=== PATIENT | male | born 2000 | race Hispanic/Latino ===

== ENCOUNTER 2024-05-04 10:20 | Emergency (ER) | payer SELFPAY ==
--- OUTSIDE RECORDS SUMMARY | 2024-05-04 10:24 | XMS REPORT | Continuity of Care Document ---
Author Name Unknown Address [address] [place] [address] [facility] thconnect Address 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 PCP, PATIENT DOES NOT HAVE A Primary Care Physic Jesse Sandoval Attending Clinician UnavailIsaac Herrera Attending Clinician Unavailable Wendy Fowler MD Attending Clinician Maxim Katz ENP Attending Clinician Doctor Unassigned, [place] Attending Clinician U navailable NIKO DEL TORO Attending Clinician Unavailable NIKO DEL TORO Attending Clinician Unavailable MAXIM KATZ Attending Clinician Unavailable XIAO DOBSON Attending Clinician Unavailable Xiao Dobson MD Attending Clinician FREDA VALERIO Attending Clinician UnavailFREDA Montemayor Attending Clinician Unavailpeace e Physician, No Primary or Family Admitting Clinic candida Unavailable NIKO DEL TORO Admitting Clinician Unavailable MAXIM KATZ Admitting Clinician Unavailable WENDY FOWLER Admitting Clinician Unavailable XIAO DOBSON Admitting Clinician Unavailable FREDA VALERIO Admitting Clinician Unavailabl e Payers Payer Name Policy Type Policy Number Effective Date Expirati on Date Source Problems Condition Name Condition Details Condition Category Status Onset Date Resolution Date Last Treatment Date Treating Clinician Comments Source No known active problems No known active problems Disease [facility] Allergies, Adverse Reactions, Alerts Allergy Name Allergy Type Status Severity Reaction(s) Onset Date Inactive Date Treating Clinician Comments Source No Known Allergie s DA Active U 4-03 00:00: 00 [facility] No Known Allergie s DA Active U 2022-07 0-08 00:00: 00 [facility] No Known Allergie s DA Active U 918 00:00: 00 [facility] No Known Allergie s DA Active U 9-18 00:00: 00 [facility] NO KNOWN ALLERGIE S Drug Class Active [facility] Social History Social Habit Start Date Stop Date Quantity Comments Source Gender identity [facility] Sexual orientation U [facility] Exposure to SARS-CoV-2 (event) 2022-12-10 00:00:00 2022-12-20 17:38:[address] [facility] Sex Assigned At 2000 00:00:00 2000 00:00:00 [facility] Smoking Status Start Date Stop Date Source Tobacco smoking consumption unknown [facility] Medications Ordered Medication Name Filled Medication Name Start Date Stop Date Current Medication? Ordering Clinician Indication Dosage Frequency Signature (SIG) Comments Components Source levETIRAcet am (KEPPRA) tablet 1,000 mg 02-16 01:30: 00 02-16 00:45 :00 No 1000mg 1,000 mg, Oral, ONCE, 1 dose, On 02/15/23 at 2030, Routine [facility] NaCl 0.9% (NS) bolus infusion 1,000 mL 02-15 23:45: 00 02-16 00:43 :00 No 1000mL at 999 mL/hr, 1,000 mL, IV Infusion, ONCE, 1 dose, On 02/15/23 at 1845, [facility] ondansetron (ZOFRAN (PF)) injection 4 mg 02-15 23:45: 00 02-15 23:13 :00 No 4mg 4 mg, Slow IV Push, ONCE, 1 dose, On 02/15/23 at 1845, [facility] famotidine (PEPCID (PF)) injection 20 mg 02-15 23:00: 00 02-15 23:13 :00 No 20mg 20 mg, Slow IV Push, ONCE, 1 dose, On 02/15/23 at 1800, [facility] iopamidol (ISOVUE 370-500 mL) injection 80 mL 01-31 15:15: 00 01-31 15:15 :00 No [id number] 80mL 80 mL, Intravenou s, ONCE, 1 dose, On 01/31/23 at 1015, Routine [facility] ondansetron (ZOFRAN (PF)) injection 4 mg 01-31 14:30: 00 01-31 14:07 :00 No 4mg 4 mg, Slow IV Push, ONCE, 1 dose, On 01/31/23 at 0930, [facility] pantoprazol e (PROTONIX) injection 40 mg 01-31 14:30: 00 01-31 14:09 :00 No 40mg 40 mg, Slow IV Push, ONCE, 1 dose, On 01/31/23 at 0930 [facility] NaCl 0.9% (NS) bolus infusion 1,000 mL 01-31 14:30: 00 01-31 15:14 :00 No 1000mL at 999 mL/hr, 1,000 mL, IV Infusion, ONCE, 1 dose, On Thu01/31/23 at 0930, BRITTANY [facility] sucralfate 1 gram tablet 01-31 00:00: 00 Yes [id number] 1g Take 1 tablet by mouth before meals and at bedtime. [facility] ZITHROMAX Z-SALLY 250 mg dose pack 01-31 00:00: 00 Yes [id number] Take 2 tablets on day 1, then 1 tablet daily on days 2-5. [facility] albuterol 90 mcg/actuati on inhaler 01-31 00:00: 00 Yes [id number] 2{puff} Inhale 2 Puffs every 4 (four) hours as needed for Wheezing or Shortness of Breath. [facility] famotidine (PEPCID) 20 mg tablet 01-31 00:00: 00 03-03 04:59 :00 No [id number] 20mg Take 1 tablet by mouth in the morning and 1 tablet in the evening. Do all this for 30 days. [facility] gadoteridol (PROHANCE-1 5 mL) injection 14.24 mL 01-20 22:30: 00 01-20 22:30 :00 No [id number] .2mL/kg 14.24 mL (0.2 mL/kg ?71.2 kg), Intravenou s, ONCE, 1 dose, On Thu01/20/23 at 1730, Routine [facility] NaCl 0.9% (NS) bolus infusion 1,000 mL 01-20 21:45: 00 01-21 00:04 :00 No 1000mL at 999 mL/hr, 1,000 mL, IV Infusion, ONCE, 1 dose, On Thu01/20/23 at 1645, BRITTANY [facility] levETIRAcet am (KEPPRA) in NACL (ISO-OS) 1,000 mg/100 mL RTU 01-20 21:00: 00 01-20 21:30 :00 No 1000mg 1,000 mg, IV Piggyback, ONCE, 1 dose, On Tu01/20/23 at 1600, Administer over 15 Minutes, 100 mL [facility] levETIRAcet am (KEPPRA) 500 mg tablet 01-20 00:00: 00 02-20 04:59 :00 No [id number] 500mg Take 1 tablet by mouth in the morning and 1 tablet in the evening. Do all this for 30 days. [facility] acetaminoph en (TYLENOL) tablet 1,000 mg 12-21 00:00: 00 12-20 23:19 :00 No 1000mg 1,000 mg, Oral, ONCE, 1 dose, On 12/20/22 at 1900, BRITTANY [facility] NaCl 0.9% (NS) bolus infusion 1,000 mL 12-20 23:45: 00 12-21 01:40 :00 No 1000mL at 999 mL/hr, 1,000 mL, IV Infusion, ONCE, 1 dose, On 12/20/22 at 1845, BRITTANY [facility] ibuprofen (IBU) tablet 600 mg 10-13 17:30: 00 10-13 16:27 :00 No 600mg 600 mg, Oral, ONCE, 1 dose, On Thu10/13/21 at 1230, BRITTANY [facility] levETIRAcet am (KEPPRA) in NACL (ISO-OS) 1,000 mg/100 mL RTU 10-13 16:00: 00 10-13 16:26 :00 No 1000mg 1,000 mg, IV Piggyback, ONCE, 1 dose, On Thu10/13/21 at 1100, Administer over 15 Minutes, 100 mL [facility] NaCl 0.9% (NS) bolus infusion 1,000 mL 10-13 16:00: 00 10-13 16:26 :00 No 1000mL at 999 mL/hr, 1,000 mL, IV Infusion, ONCE, 1 dose, On 10/13/21 at 1100, BRITTANY [facility] levETIRAcet am (KEPPRA) 500 mg tablet 10-13 00:00: 00 01-20 00:00 :00 No [id number] 500mg Take 1 tablet by mouth 2 (two) times daily. [facility] No known medications 09-14 18:14: 00 No [facility] Vital Signs Vital Name Observation Time Observation Value Comments S cierra Systolic blood pressure 2023-02-16 00:55:00 120 mm[Hg] [facility] Diastolic blood pressure 2023-02-16 00:55:00 70 mm[Hg] [facility] Heart rate 2023-02-16 00:55:00 80 /min Unive [facility] Body temperature 2023-02-16 00:55:[address] [facility] Respiratory rate 2023-02-16 00:55:00 17 /min [facility] Oxygen saturation in Arterial blood by Pulse oximetry 2023-02-16 00:55:00 96 /min [facility] Body height 2023-02-15 22:48:00 170.2 cm [facility] Body weight 2023-02-15 22:48:00 75.751 kg [facility] BMI 2023-02-15 22:48:00 26.16 kg/m2 [facility] Systolic blood pressure 2023-01-31 15:00:00 138 mm[Hg] [facility] Diastolic blood pressure 2023-01-31 15:00:00 67 mm[Hg] [facility] Heart rate 2023-01-31 15:00:00 64 /min [facility] Body temperature 2023-01-31 15:00:[address] [facility] Respiratory rate 2023-01-31 15:00:00 18 /min [facility] Oxygen saturation in Arterial blood by Pulse oximetry 2023-01-31 15:00:00 100 /min [facility] Body height 2023-01-31 13:25:00 165.1 cm [facility] Body weight 2023-01-31 13:25:00 75.751 kg [facility] BMI 2023-01-31 13:25:00 27.79 kg/m2 [facility] Systolic blood pressure 2023-01-20 23:40:00 124 mm[Hg] [facility] Diastolic blood pressure 2023-01-20 23:40:00 67 mm[Hg] [facility] Heart rate 2023-01-20 23:40:00 74 /min [facility] 2023-01-20 23:40:00 16 /min [facility] Oxygen saturation in Arterial blood by Pulse oximetry 2023-01-20 23:40:00 99 /min [facility] Body temperature 2023-01-20 20:52:[address] [facility] Body height 2023-01-20 20:49:00 167.6 cm [facility] Body weight 2023-01-20 20:49:00 71.215 kg [facility] BMI 2023-01-20 20:49:00 25.34 kg/m2 [facility] Systolic blood pressure 2022-12-21 01:00:00 123 mm[Hg] [facility] Diastolic blood pressure 2022-12-21 01:00:00 72 mm[Hg] [facility] Heart rate 2022-12-21 01:00:00 86 /min [facility] Oxygen saturation in Arterial blood by Pulse oximetry 2022-12-21 01:00:00 99 /min [facility] Body temperature 2022-12-20 22:56:[address] [facility] Respiratory rate 2022-12-20 22:56:00 18 /min [facility] Body height 2022-12-20 22:43:00 177.8 cm [facility] Body weight 2022-12-20 22:43:00 81.647 kg [facility] BMI 2022-12-20 22:43:00 25.83 kg/m2 [facility] Systolic blood pressure 2021-10-13 16:25:00 125 mm[Hg] [facility] Diastolic blood pressure 2021-10-13 16:25:00 77 mm[Hg] [facility] Heart rate 2021-10-13 16:25:00 82 /min [facility] Body temperature 2021-10-13 16:25:[address] [facility] Respiratory rate 2021-10-13 16:25:00 18 /min [facility] Oxygen saturation in Arterial blood by Pulse oximetry 2021-10-13 16:25:00 98 /min [facility] Body weight 2021-10-13 14:18:00 70.308 kg [facility] BMI 2021-10-13 14:18:00 26.61 kg/m2 [facility] Systolic blood pressure 2021-09-15 04:00:00 127 mm[Hg] [facility] Diastolic blood pressure 2021-09-15 04:00:00 63 mm[Hg] [facility] Heart rate 2021-09-15 04:00:00 85 /min [facility] Oxygen saturation in Arterial blood by Pulse oximetry 2021-09-15 04:00:00 97 /min [facility] Respiratory rate 2021-09-15 01:42:00 19 /min [facility] Body temperature 2021-09-15 00:17:[address] [facility] Body height 2021-09-15 00:17:00 162.6 cm [facility] Body weight 2021-09-15 00:17:00 64.864 kg [facility] BMI 2021-09-15 00:17:00 24.55 kg/m2 [facility] Procedures Procedure Date / Time Performed Performing Clinician Source TROPONIN I 2023-02-15 23:05[facility] METABOLIC PANEL ([id number]) 2023-02-15 23:05:[address] [facility] CBC WITH DIFF 2023-02-15 23:05:00 Del Toro, Niko [facility] LACTIC ACID WHOLE BLOOD 2023-02-15 23:05:[address] [facility] CT ABDOMEN PELVIS W CONTRAST 2023-01-31 14:24:[address] [facility] URINE DRUG (IMMUNOASSAY) - COMPREHENSIVE DRUG SCREEN W/O REFLEX 2023-01-31 13:58:[address] [facility] COMP. METABOLIC PANEL ([id number]) 2023-01-31 13:57:[address] [facility] CBC WITH DIFF 2023-01-31 13:57:00 Maxim Katz [facility] PROTHROMBIN TIME / INR 2023-01-31 13:57:[address] [facility] URINALYSIS 2023-01-31 13:57:00 Maxim [facility] CONSENT/REFUSAL FOR DIAGNOSIS AND TREATMENT 2023-01-31 13:22:39 Doctor Unassigned, [place] [facility] EKG-12 LEAD 2023-01-21 00:01:26 [facility] 2023-01-20 23:44:[address] [facility] MR BRAIN W WO CONTRAST 2023-01-20 22:24:[address] [facility] LACTIC ACID WHOLE BLOOD 2023-01-20 21:04:[address] [facility] CREATINE KINASE 2023-01-20 21:03:00 Wendy [facility] COMP. METABOLIC PANEL ([id number]) 2023-01-20 21:03:[address] [facility] CBC WITH DIFF 2023-01-20 21:03:00 Wendy Fowler [facility] URINALYSIS 2022-12-21 00:49:00 Maxim Katz [facility] URINE DRUG (IMMUNOASSAY) - COMPREHENSIVE DRUG SCREEN W/O REFLEX 2022-12-21 00:49:[address] [facility] ASSIGNMENT OF BENEFITS 2022-12-21 00:16:03 Docto r Unassigned, [place] [facility] COMP. METABOLIC PANEL ([id number]) 2022-12-20 23:00:00 Sterling [facility] CBC WITH DIFF 2022-12-20 23:00:00 Maxim Katz [facility] CONSENT/REFUSAL FOR DIAGNOSIS AND TREATMENT 2022-12-20 22:37:18 Doctor Unassigned, [place] [facility] CT HEAD WO CONTRAST 2021-10-13 15:30:00 Dobson, [facility] CT TRAUMA CERVICAL SPINE WO CONTRAST 2021-10-13 15:30:00 Dobson, [facility] CT TRAUMA LUMBAR SPINE WO CONTRAST 2021-10-13 15:30:00 Dobson, [facility] URINALYSIS 2021-10-13 15:07:00 Dobson, [facility] URINE DRUG (IMMUNOASSAY) - COMPREHENSIVE DRUG SCREEN W/O REFLEX 2021-10-13 15:07:00 Dobson, [facility] CREATINE KINASE 2021-10-13 15:04:00 Dobson, [facility] BASIC METABOLIC PANEL (NA, K, CL, CO2, GLUCOSE, BUN, CREATININE, CA) 2021-10-13 15:04:00 Dobson, [facility] CBC WITH DIFF 2021-10-13 15:04:00 Dobson, [facility] LACTIC ACID WHOLE BLOOD 2021-10-13 15:04:[address] [facility] CONSENT/REFUSAL FOR DIAGNOSIS AND TREATMENT 2021-10-13 14:05:20 Doctor Unassigned, [place] [facility] URINALYSIS 2021-09-15 02:09:00 Freda Valerio [facility] URINE DRUG (IMMUNOASSAY) - COMPREHENSIVE DRUG SCREEN W/O REFLEX 2021-09-15 02:09:[address] [facility] CT TRAUMA HEAD WO CONTRAST 2021-09-15 01:07:[address] [facility] CT TRAUMA CERVICAL SPINE WO CONTRAST 2021-09-15 01:07:[address] [facility] XR CHEST 1 VW 2021-09-15 00:39:18 Freda Valerio Un [facility] LACTIC ACID WHOLE BLOOD 2021-09-15 00:27:[address] [facility] EXTRA TUBE LT. BLUE 2021-09-15 00:27:[address] [facility] COMP. METABOLIC PANEL ([id number]) 2021-09-15 00:21:[address] [facility] CBC WITH DIFF 2021-09-15 00:21:00 Freda Valerio [facility] COVID-19 (ID NOW RAPID TESTING) 2021-09-15 00:21:[address] [facility] Encounters Start Date/Time End Date/Time Encounter Type Admission Type Attending [facility] Facility Care Department Encounter ID Source 2024-03-13 21:18:32 Emergency HFD HFD [id number] [facility] Fire Depart ent 2023-04-19 11:23:40 Emergency HFD HFD [id number] [facility] Fire Depart ent 2023-10-28 09:54:00 2023-10-28 16:47:00 Emergency EM [facility] [id number] 25 [facility] 2023-05-03 12:46:00 2023-05-03 13:45:00 Emergency EM Jesse [facility] [id number] 12 [facility] 2023-04-17 21:57:00 2023-04-17 22:40:00 Emergency EM Isaac Mcgrath [facility] AVERY [id number] 66 [facility] 2023-04-13 16:56:00 2023-04-13 22:01:00 Emergency EM Jesse [facility]ite[facility] [id number] 07 [facility] 2023-03-31 00:00:00 2023-03-31 00:00:00 Wendy Ortega [facility] 1.2.840.114 350.1.13.10 4.2.7.2.686 [id number] [facility] 2023-03-27 00:00:00 2023-03-27 00:00:00 Refill Sterling [facility] ([facility]) 1.2.840.114 350.1.13.10 4.2.7.2.686 [id number] [facility] 2023-02-17 00:00:00 2023-02-17 00:00:00 Patient Secure Msg Doctor Unassigned, [place] [facility] 1.2.840.114 350.1.13.10 4.2.7.2.686 [id number] [facility] 2023-02-15 17:49:00 2023-02-15 19:56:00 Emergency X DEL TORO, NIKO DEL TORO [facility] ERT [id number] [facility] 2023-02-15 17:49:00 2023-02-15 19:56:00 Emergency Del Toro [facility] ([facility]) 1.2.840.114 350.1.13.10 4.2.7.2.686 [id number] [facility] 2023-02-13 00:00:00 2023-02-13 00:00:00 Refill Sterling [facility] ([facility]) 1.2.840.114 350.1.13.10 4.2.7.2.686 [id number] [facility] 2023-01-31 08:27:00 2023-01-31 10:05:00 Emergency X MAXIM KATZ [facility] ERT [id number] [facility] 2023-01-31 08:27:00 2023-01-31 10:05:00 [facility] 1.2.840.114 350.1.13.10 4.2.7.2.686 [id number] [id number] [facility] 2023-01-20 15:47:00 2023-01-20 19:16:00 Emergency X WENDY FOWLER [facility] ERT [id number] [facility] 2023-01-20 15:47:00 2023-01-20 19:16:00 Emergency Saúl [facility] ([facility]) 1.2.840.114 350.1.13.10 4.2.7.2.686 [id number] [id number] [facility] 2022-12-20 17:44:00 2022-12-20 20:41:00 Emergency X MAXIM KATZ [facility] ERT [id number] [facility] 2022-12-20 17:44:00 2022-12-20 20:41:00 Emergency Sterling [facility] ([facility]) 1.2.840.114 350.1.13.10 4.2.7.2.686 [id number] [id number] [facility] 2021-10-13 09:12:00 2021-10-13 11:30:00 Emergency XIAO STARR [facility] ERT [id number] [facility] 2021-10-13 09:12:00 2021-10-13 11:30:00 Emergency Olya Xiao [facility] 1.2.840.114 350.1.13.10 4.2.7.2.686 [id number] [facility] 2021-09-14 18:04:00 2021-09-14 22:45:00 Emergency FREDA PEREZ REBECCA [facility] ERT [id number] [facility] 2021-09-14 18:04:00 2021-09-14 22:45:00 Emergency Freda Valerio [facility] 1.2.840.114 350.1.13.10 4.2.7.2.686 [id number] [facility] 2018-04-16 00:00:00 2018-04-16 00:00:00 Outpatient H[facility] H[facility]O [id number] [facility] Results Test Description Test Time Test Comments Results Result Co mments Source - CT MAXIFAC W/O [id number] 12:09:00 [facility] 2000 Sex: M Name: MARTÍNEZ MOER [facility] : 2000 Age/S: 23 / M [address] [address] Unit #: [id number] Loc: [place] [address] Phys: Jesse Benitez MD Acct: [id number] Dis Date: Status: REG ER PHONE #: [phone] Exam Date: 10/28/2023 1144 FAX #: [phone] Reason: ams, found with obvious head trauma EXAMS: CPT CODE: [id number] CT MAXIFAC W/O CONTRAST [id number] Dictation location: C4. CT FACE WITHOUT IV CONTRAST; CORONAL AND SAGITTAL REFORMATTED VIEWS HISTORY:ams, found with obvioushead trauma COMPARISON:None. TECHNIQUE: Axial CT images of the face were obtained with coronal and sagittal reformatted views. Automated exposure control, iterative reconstruction technique, and/or adjustment of mA and/or kV according to patient's size was utilized for radiation dose reduction. IV CONTRAST: None. FINDINGS: Left facial and periorbital soft tissue swelling is noted. Subcutaneous emphysema noted anteriorly to the left orbit. No definite discrete fluid collection. The orbits is likely intact. No retrobulbar hemorrhage or mass. No definite CT evidence of extraocular muscle entrapment. Nondisplaced left nasal bone fracture. No other facial fracture. The mandible is intact. Temporomandibular joints are maintained. Probable small mucous retention cysts in the right maxillary sinus. Mild thickening of the ethmoid sinus. IMPRESSION: Left nasal bone fracture. Left periorbital soft tissue swelling and subcutaneous emphysema likely related to injury and potential soft tissue laceration.. The ovaries appears grossly intact without any retrobulbar involvement. at 1209 Reported and signed by: JoseA Chaidez M.D. PAGE 1 Signed Report (CONTINUED) Name: MARTÍNEZ MORE [facility] : 8 Age/S: 23 / M [address] [address] Unit #: [id number] Loc: [place] [address] Phys: Jesse Benitez MD Acct: [id number] Dis Date: Status: REG ER PHONE #: [phone] Exam Date: 10/28/2023 1144 FAX #: [phone] Reason: ams, found with obvious head trauma EXAMS: CPT CODE: [id number] CT MAXIFAC W/O CONTRAST 41633 (Continued) CC: Jesse Benitez MD Technologist:Roselia Alfredo RT(R)(CT) CTDI: DLP: Trnscb Date/Time: 10/28/2023 (1209) [email or web address] Orig Print D/T: S: 10/28/2023 (1212) PAGE 2Signed Report- CT C-SPINE W/O [id number] 12:05:[facility] : 2000 Sex: M Name: MARTÍNEZ MORE [facility] Jose SCHERER : 2000 Age/S: 23 / M [address] [address] Unit #:[id number] Loc: [place] [address] Phys: Jesse Benitez MD Acct: [id number] Dis Date: Status: REG ER PHONE #: [phone] Exam Date: 10/28/2023 1144 FAX #: [phone] Reason: NECK PAIN EXAMS: CPT CODE: [id number] CT C-SPINE W/O CONT 22698 Dictation location: C4. CT CERVICAL SPINE WITHOUT CON TRAST; SAGITTAL AND CORONAL REFORMATTED VIEWS. HISTORY: NECK PAIN COMPARISON :None. TECHNIQUE: Axial CT images of the cervical spine were obtained with coronal and sagittal reformatted views. Automated exposure control, iterative reconstruction technique, and/or adjustment of mA and/or kV accordingto patient's size was utilized for radiation dose reduction. IV CONTRAST: None. FINDINGS: Cervical alignment is satisfactory without evidence of a fracture or subluxation. No prevertebral soft tissueswelling. No significant bony degenerative changes. IMPRESSION: No cervical spine fracture or subluxation. at 1205 Reportedand signed by: Jose A Chaidez M.D. CC: Jesse Benitez MD Technologist:Roselia Alfredo RT(R)(CT) CTDI: DLP: Trnscb Date/Time: 10/28/2023 (1205) [email or web address] Orig Print D/T: S: 10/28/2023 (8449) PAGE 1 Signed Report- CT HEAD/BRAIN W/O [id number] 12:04:00 [facility] 2000 Sex: M Name: MARTÍNEZ MORE [facility] ER : 2000 Age/S: 23 / M [address] [address] Unit #:[id number] Loc: [place] [address] Phys: Jesse Benitez MD Acct: [id number] Dis Date: Status: REG ER PHONE #: [phone] Exam Date: 10/28/2023 1143 FAX #: [phone] Reason: HEADACHE EXAMS: CPT CODE: [id number] CT HEAD/BRAIN W/O CONT 86998 Dictation location: C4. CT HEAD WITHOUT CONTRAST. HISTORY: HEADACHE COMPARISON: No comparison is available. TECHNIQUE: Axial CT images of the head wereobtained with coronal and/or sagittal reformatted views. Automated exposure control, iterative reconstruction technique, and/or adjustment of mA and/or kV according to patient's size was utilized forradiation dose reduction. IV CONTRAST: None. FINDINGS: No intracranial abnormalities such as hemorrhage, mass, mass effect, hydrocephalus, midline shift, extra-axial fluid collection or secondary signs of an acute infarct are noted. The calvarium and skull base are intact. The visualized paranasal sinus and mastoid air cells are clear. IMPRESSION: No evidence of acute intracranial abnormality. at 1204 Reported and signed by: Jose A Chaidez M.D. CC: Jesse Benitez MD Technologist:Roselia Alfredo RT(R)(CT) CTDI: DLP: Trnscb Date/Time: 10/28/2023 (1204) [email or web address] Orig Print D/T: S: 10/28/2023 (7217) PAGE 1 Signed Report BASIC METABOLIC [id number] 11:57:00* Test Item Value Reference Range Interpretation Comme nts SODIUM (test code = NA) 139 mEq/L 134-147 N POTASSIUM (test code = K) 4.2 mEq/L 3.4-5.0 N CHLORIDE (test code = CL) 110 mEq/L 100-108 H CARBON DIOXIDE (test code = CO2) 23 mEq/l 21-33 N ANION GAP (test code = GAP) 10 0-20 N GLUCOSE (test code = GLU) 118 mg/dL 77-141 N BLOOD UREA NITROGEN (test code = BUN) 8 mg/dL 7-25 N GLOMERULAR FILTRATION RATE (test code = GFR) 121.6 110-120 H The Glomerular Filtration Rate is a calculated parameterbased on serum Creatinine, patient age and sex. GFR valuesless than 60 mL/min/1.73 square meters are indicative ofChronic Kidney Disease. Values less than 15 mL/min/1.73square meters indicate Kidney failure. The calculation forGFR is based on the CKD-EPI (2020) calculation. This formulais race indifferent and is the recommended formula for GFRby the National Kidney Foundation for Adults.The GFR will not calculate if the sex is unknown or if thepatient's age is <18 years. CREATININE (test code = CREAT) 0.9 mg/dL 0.6-1.3 N CALCIUM (test code = CA) 8.3 mg/dL 8.0-10.5 N HEPATIC FUNCTION [id number] 11:57:00* Test Item Value Reference Range Interpretation Comme nts TOTAL PROTEIN (test code = PROT) 5.8 g/dL 6.4-8.2 L ALBUMIN (test code = ALB) 3.30 g/dL 3.4-5.0 L BILIRUBIN TOTAL (test code = BILT) 0.20 mg/dL 0.0-1.0 N BILIRUBIN DIRECT (test code = BILD) < 0.10 MG/DL 0.1-0.3 L BILIRUBIN INDIRECT (test cod e = BILIND) 0.10 MG/DL SGOT/AST (test code = AST) 23 IUnit/L 8-34 N SGPT/ALT (test code = ALT) 25 IUnit/L 10-49 N ALKALINE PHOSPHATASE TOTAL ( test code = ALKP) 62 IUnit/L 20-125 N - XR PELVIS /2 [id number] 11:56:00 [facility] 2000 Sex: M FAX: Jesse Benitez [place]: St: REG Name: MARTÍNEZ MORE [facility] ER : 2000 Age/S: 23/M [address] [place] [address] Unit #: [id number] Loc: [place] [address] Phys: Jesse Benitez MD Acct: [id number] Dis Date: Status: REG ER PHONE #: [phone] Exam Date: 10/28/2023 1109 FAX #: [phone] Reason: PELVIC PAIN EXAMS: CPT CODE: [id number] XR PELVIS 1/2 VIEWS 74392 Pelvis one view History: PELVIC PAIN Comparison: None at this time Location: H45 A single frontal view of the pelvis is submitted. No acute fractures and no dislocations are identified. The joint spaces appear unremarkable. IMPRESSION: Unremarkable exam. at 1156 Reported and signed by: Ayad Correa M.D. CC: Jesse Benitez MD Technologist: Ludin Capps, (R) Trnscrd Date/Time/By: 10/28/2023 (1156) : By: TamannaPMT Orig Print D/T: S: 10/28/2023 (0318) PAGE 1 Signed Report PROTHROMBIN [id number] 11:48:00* Test Item Value Reference Range Interpretation Comme nts PROTHROMBIN TIME PATIENT (test code = PTP) 12.2 SECONDS 9.3-12.9 N INTERNATIONAL NORMAL RATIO (test code = INR) 1.1 0.8-1.2 N TARGET INR BY INDICATION Indication INR1. Prophylaxis of venous thrombosis 2.0 - 3.0 (orthopedic surgery), Prophylaxis of venous thrombosis (other than high-risk surgery), Treatment of Deep Vein Thrombosis/Pulmonary Embolism, Prevention of systemic embolism - Tissue heart valves, Acute Myocardial Infarction (to prevent systemic embolism), Valvular heart disease, Atrial Fibrillation, Bileaflet mechanical valve in aortic position.2. Mechanical prosthetic valves (high risk), 2.5 - 3.5 Presence of Lupus Anticoagulant or Antiphospholipid Antibodies, Prevention of systemic embolism - Acute Myocardial Infarction (to prevent recurrent infarct). THROMBOPLASTIN TIME [id number] 11:48:00* Test Item Value Reference Range Interpretation Comme nts THROMBOPLASTIN TIME PARTIAL (test code = PTT) 33.2 Seconds 25.0-39.5 N Therapeutic Rang e: 50.4 - 88.3 Seconds Effective 11/09/2018 [id number] 11:48:00* Test Item Value Reference Range Interpretation Comme nts ALCOHOL (test code = ALC) < 3.0 mg/dL <10 N Ethyl Alcohol Interpretation: 100 mg/dL - Legally Intoxicated 300-400 mg/dL - Severely Intoxicated >400 mg/dL - Potentially LethalThe pharmacological response to blood alcohol levels mayvary from individual to individual. Signs of intoxicationcan be observed at levels of 50-100 mg/dL. Results are for Medical purposes only, and not for Legal orEmployment evaluation purposes. - XR CHEST 1 [id number] 11:38:00 [facility] 2000 Sex: M FAX: Jesse Benitez [place]: St: REG Name: MARTÍNEZ MORE [facility] : 2000 Age/S: 23/M [address] [place] [address] Unit #: [id number] Loc: [place] [address] Phys: Jesse Benitez MD Acct: [id number] Dis Date: Status: REG ER PHONE #: [phone] Exam Date: 10/28/2023 1114 FAX #: [phone] Reason: CHEST PAIN EXAMS: CPT CODE: [id number] XR CHEST 1 V 82986 HISTORY: chest pain Location code: B2 FINDINGS: Frontal view of the chest demonstrates normal cardiomediastinal silhouette. The trachea is midline. The lungs are clear. There is no effusion or pneumothorax. The bones are intact. IMPRESSION: No acute pulmonary process. at 1138 Reported and signed by: Alexey Beach M.D. CC: Jesse Benitez MD Technologist: RT Beth(R) Trnscrd Date/Time/By: 10/28/2023 (1138) : By: [email or web address] Orig Print D/T: S: 10/28/2023 (1141) PAGE 1 Signed ReportUA RFLX MICR CULT IF [id number] 20:59:00* Test Item Value Reference Range Interpretation Comme nts UA COLOR (test code = COLU) YELLOW YEL/STRAW UA APPEARANCE (test code = APPU) CLEAR CLEAR UA GLUCOSE DIPSTICK (test co de = DGLUU) NEGATIVE NEGATIVE UA BILIRUBIN DIPSTICK (test code = BILU) NEGATIVE NEGATIVE UA KETONE DIPSTICK (test cod e = KETU) NEGATIVE NEGATIVE UA SPECIFIC GRAVITY (test co de = SGU) 1.024 1.005-1.030 N UA BLOOD DIPSTICK (test code = PARAMJIT) NEGATIVE NEGATIVE UA PH DIPSTICK (test code = JOSE) 5.0 5.0-7.0 N UA PROTEIN DIPSTICK (test co de = PROU) NEGATIVE NEGATIVE UA UROBILINIOGEN DIPSTICK (test code = URO) 0.2 mg/dL 0.2-1.0 UA NITRITE DIPSTICK (test co de = AICHA) NEGATIVE NEGATIVE UA LEUKOCYTE ESTERASE DIPSTI CK (test code = LEUU) NEGATIVE NEGATIVE UA WBC (test code = WBCU) 0-3 WBC/HPF 0-3 UA RBC (test code = RBCU) 0-3 RBC/HPF 0-3 UA WBC NO REFLEX (test code = WBCUCL) 0-3 WBC/HPF 0-3 UA BACTERIA (test code = BACU) NONE SEEN /HPF NONE SEEN UA SQUAMOUS CELLS (test code = SQU) 0-5 /HPF NONE SEEN UA MUCUS (test code = MUCU) TRACE /LPF NONE SEEN Indication for culture: RiskForSepsis-no oth srcSpecimen Description: CLEAN CATCHDRUGS OF ABUSE SCREEN [id number] 20:51:00* Test Item Value Reference Range Interpretation Comme nts URN COCAINE (test code = COCAURN) POSITIVE NEGATIVE A URN CANNABINOIDS (test code = CANNABURN) POSITIVE NEGATIVE A URN AMPHETAMINE (test code = AMPHETURN) NEGATIVE NEGATIVE URN BARBITURATE (test code = BARBITURN) NEGATIVE NEGATIVE URN BENZODIAZEPINE (test code = BENZOURN) POSITIVE NEGATIVE A Cut-off v alue:200 ng/mL URN OPIATES (test code = OPIATURN) NEGATIVE NEGATIVE Cut-off value:20 00 ng/mL URN PHENCYCLIDINE (PCP) (test code = PHENCURN) NEGATIVE NEGATIVE Cutoffs:B arbiturates 200 ng/mLBenzodiazepines 200 ng/mLTHC Cannabinoids 50 ng/mLOpiates(Morphine) 2000 ng/mLAmphetamine 1000 ng/mLCocaine 300 ng/mLPCP phencyclidine 25 ng/mL Unconfirmed screening results shouldnot be used for non-medical purposes. CBC W/AUTO [id number] 19:27:00* Test Item Value Reference Range Interpretation Comme nts WHITE BLOOD CELL (test code = WBC) 18.2 x10 3/uL 4.5-11.0 H RED BLOOD CELL (test code = RBC) 4.95 x10 6/uL 4.00-5.60 N HEMOGLOBIN (test code = HGB) 15.0 g/dL 12.5-16.9 N HEMATOCRIT (test code = HCT) 44.9 % 37.5-50.7 N MEAN CELL VOLUME (test code = MCV) 90.7 fL 81.0-99.0 N MEAN CELL HGB (test code = MCH) 30.3 pg 27.0-33.0 N MEAN CELL HGB CONCETRATION (test code = MCHC) 33.4 g/dL 33.0-37.0 N RED CELL DISTRIBUTION WIDTH CV (test code = RDW) 12.5 % 11.5-14.5 N RED CELL DISTRIBUTION WIDTH SD (test code = RDW-SD) 41.1 fL 37.0-54.0 N PLATELET COUNT (test code = PLT) 237 x10 3/uL 150-400 N MEAN PLATELET VOLUME (test code = MPV) 9.7 fL 7.0-9.0 H NEUTROPHIL % (test code = NT%) 87.7 % 56.0-77.0 H IMMATURE GRANULOCYTE % (test code = IG%) 0.7 % 0.0-2.0 N LYMPHOCYTE % (test code = LY%) 7.0 % 14.0-32.0 L MONOCYTE % (test code = MO%) 4.3 % 4.8-9.0 L EOSINOPHIL % (test code = EO%) 0.2 % 0.3-3.7 L BASOPHIL % (test code = BA%) 0.1 % 0.0-2.0 N NUCLEATED RBC % (test code = NRBC%) 0.0 % 0-0 N NEUTROPHIL # (test code = NT#) 15.95 x10 3/uL 2.0-7.6 H IMMATURE GRANULOCYTE # (test code = IG#) 0.13 x10 3/uL 0.00-0.03 H LYMPHOCYTE # (test code = LY#) 1.27 x10 3/uL 1.0-3.8 N MONOCYTE # (test code = MO#) 0.78 x10 3/uL 0.1-0.8 N EOSINOPHIL # (test code = EO#) 0.03 x10 3/uL 0.0-0.2 N BASOPHIL # (test code = BA#) 0.02 x10 3/uL 0.0-0.2 N NUCLEATED RBC # (test code = NRBC#) 0.00 x10 3/uL 0.0-0.1 N MANUAL DIFF REQUIRED (test code = MDIFF) NO PROTHROMBIN [id number] 19:24:00* Test Item Value Reference Range Interpretation Comme nts PROTHROMBIN TIME PATIENT (test code = PTP) 12.3 SECONDS 9.3-12.9 N INTERNATIONAL NORMAL RATIO (test code = INR) 1.1 0.8-1.2 N TARGET INR BY INDICATION Indication INR1. Prophylaxis of venous thrombosis 2.0 - 3.0 (orthopedic surgery), Prophylaxis of venous thrombosis (other than high-risk surgery), Treatment of Deep Vein Thrombosis/Pulmonary Embolism, Prevention of systemic embolism - Tissue heart valves, Acute Myocardial Infarction (to prevent systemic embolism), Valvular heart disease, Atrial Fibrillation, Bileaflet mechanical valve in aortic position.2. Mechanical prosthetic valves (high risk), 2.5 - 3.5 Presence of Lupus Anticoagulant or Antiphospholipid Antibodies, Prevention of systemic embolism - Acute Myocardial Infarction (to prevent recurrent infarct). THROMBOPLASTIN TIME [id number] 19:24:00* Test Item Value Reference Range Interpretation Comme nts THROMBOPLASTIN TIME PARTIAL (test code = PTT) 44.2 Seconds 25.0-39.5 H Therapeutic Rang e: 50.4 - 88.3 Seconds Effective 11/09/2018 BASIC METABOLIC [id number] 19:17:00* Test Item Value Reference Range Interpretation Comme nts SODIUM (test code = NA) 137 mEq/L 134-147 N POTASSIUM (test code = K) 4.3 mEq/L 3.4-5.0 N CHLORIDE (test code = CL) 106 mEq/L 100-108 N CARBON DIOXIDE (test code = CO2) 26 mEq/l 21-33 N ANION GAP (test code = GAP) 9 0-20 N GLUCOSE (test code = GLU) 104 mg/dL 77-141 N NOTE: NEW NORMAL RANGE BLOOD UREA NITROGEN (test code = BUN) 12 mg/dL 7-25 N NOTE: NEW NORM AL RANGE GLOMERULAR FILTRATION RATE (test code = GFR) 107.1 110-120 L The Glomerular Filtration Rate is a calculated parameterbased on serum Creatinine, patient age and sex. GFR valuesless than 60 mL/min/1.73 square meters are indicative ofChronic Kidney Disease. Values less than 15 mL/min/1.73square meters indicate Kidney failure. The calculation forGFR is based on the CKD-EPI (2020) calculation. This formulais race indifferent and is the recommended formula for GFRby the National Kidney Foundation for Adults.The GFR will not calculate if the sex is unknown or if thepatient's age is <18 years. CREATININE (test code = CREAT) 1.0 mg/dL 0.6-1.3 N CALCIUM (test code = CA) 8.9 mg/dL 8.0-10.5 N HEPATIC FUNCTION [id number] 19:17:00* Test Item Value Reference Range Interpretation Comme nts TOTAL PROTEIN (test code = PROT) 6.9 g/dL 6.4-8.2 N ALBUMIN (test code = ALB) 4.10 g/dL 3.4-5.0 N BILIRUBIN TOTAL (test code = BILT) 0.30 mg/dL 0.0-1.0 N BILIRUBIN DIRECT (test code = BILD) 0.10 MG/DL 0.1-0.3 N NOTE: NEW NORMAL RANGE SGOT/AST (test code = AST) 19 IUnit/L 8-34 N NOTE: NEW NORMAL RANGE SGPT/ALT (test code = ALT) 14 IUnit/L 10-49 N NOTE: NEW NORMAL RANGE ALKALINE PHOSPHATASE TOTAL (test code = ALKP) 80 IUnit/L 20-125 N BILIRUBIN INDIRECT (test code = BILIND) 0.20 MG/DL TROP-I HIGH [id number] 19:17:00* Test Item Value Reference Range Interpretation Comme nts TROP-I HIGH SENSITIVITY (test code = TROPIHS) 4 ng/L 0-54 N CAUTION: Units o f the current test methodology (ng/L) differfrom the prior test methodology (ng/mL) by a factor of 1000. 99th Percentile Upper Reference Limit (URL): Females: 34 ng/LMales: 54 ng/L In order to distinguish acute elevations of high sensitivitytroponin from other clinical conditions, the FourthUniversal Definition of Myocardial Infarction stressesclinical assessment and the demonstration of a rise and/orfall in serial troponin results above the URL. These results were obtained using Siemens Atellica IM TnIHreagent. Results from different methodologies should not becompared to one another as quantitative results and URLs mayvary by method. [id number] 19:16:00* Test Item Value Reference Range Interpretation Comme nts ALCOHOL (test code = ALC) 5.0 mg/dL <10 N Ethyl Alcohol Interpretation: 100 mg/dL - Legally Intoxicated 300-400 mg/dL - Severely Intoxicated >400 mg/dL - Potentially LethalThe pharmacological response to blood alcohol levels mayvary from individual to individual. Signs of intoxicationcan be observed at levels of 50-100 mg/dL. Results are for Medical purposes only, and not for Legal orEmployment evaluation purposes. - CT C-SPINE W/O [id number] 19:11:00 [facility] 2000 Sex: M Name: MARTÍNEZ CHO [facility] : 2000 Age/S: 23 / M [address] [address] Unit #: [id number] Loc: [place] [address] Phys: Jesse Benitez MD Acct: [id number] Dis Date: Status:REG ER PHONE #: [phone] Exam Date: 04/13/2023 183 FAX #: [phone] Reason: NECK PAIN EXAMS: CPT CODE: [id number] CT C-SPINE W/O CONT 39927 LOCATION: Q15 HISTORY: 23-year-old male presents with neck pain following a seizure and subsequent fall. COMMENT: Noncontrast axial CT imaging of this patient's cervical spine was obtained from the skull base to the upper thoracic spine. Soft tissueand bone window images were submitted in the axial plane. Coronal and sagittal bone reconstructionswere included. One or more of the following dose reduction techniques were used: Automated exposurecontrol, adjustment of the mA and/or kV according to patient size, and/or utilization of iterative reconstruction technique. FINDINGS: The cervical skeleton is intact and the alignment is anatomic. Intervertebral discs, uncovertebral joints, and posterior facet joints are unremarkable. The paraspinous soft tissues are unremarkable. IMPRESSION: Unremarkable CT examination of the cervical spine. at 191 Reported and signed by: Beto Roman M.D. CC: Jesse Benitez MD Technologist:RT Shannan(R)(CT) CTDI: DLP: Trnscb Date/Time: 04/13/2023 (1910) [email or web address] Orig Print D/T: S: 04/13/2023 (1914) PAGE 1 Signed Report- CT HEAD/BRAIN W/O [id number] 18:54:00 [facility] : 2000 Sex: M Name: MARTÍNEZ CHO ER : 2000 Age/S: 23 / M [address] [address] Unit #: [id number] Loc: [place] [address] Phys: Jesse Benitez MD Acct: [id number] Dis Date: Status: REG ER PHONE #: [phone] Exam Date: 04/13/2023 1830 FAX #: [phone] Reason: HEADACHE EXAMS: CPT CODE: [id number] CT HEAD/BRAIN W/O CONT 52270 Location: CT head, 04/13/23 COMPARISON EXAMS: None of the brain TECHNIQUE: CT examination of the brain was performed without contrast on a helical scanner. Scanning conducted from skull base through the vertex in the axial plane acquiring contiguous axial slice thickness . The examination was performed on updated helical CT scanner utilizing low-dose radiation technique. Automatic exposure control timing was utilized to minimize radiation dose.CLINICAL HISTORY: Trauma, headache. Patient presenting to the emergency room, seizure activity, headaches. FINDINGS: There is presence of a subcutaneous hematoma identified over the right frontal region small in size and facial structures appearing intact. No orbital emphysema with definite skull fr acture. No positive mass-effect, midline shift, extra-axial fluid collections or intracranial hemorrhages seen. In particular, no subarachnoid hemorrhage is identified. No intra or extra-axial masses. No skull fracture is seen. The globes are intact. No acute territorial infarction is seen. No cerebral edema is seen. No significant sinus disease is seen. No pneumocephalus is seen or definite acute traumatic injury. IMPRESSION: Small right frontal scalp hematoma. No other acute traumatic injury. at 1854 Reported and signed by: Lora Stinson M.D. PAGE 1 Signed Report (CONTINUED) Name: MARTÍNEZ CHO ER : 2000 Age/S: 23 / M [address] [address] Unit #: [id number] Loc: [place] [address] Phys: Jesse Benitez MD Acct: [id number] Dis Date: Status: REG ER PHONE #: [phone] Exam Date: 04/13/2023 1830 FAX #: [phone] Reason: HEADACHE EXAMS: CPT CODE: [id number] HEAD/BRAIN W/O CONT 93168 (Continued) CC: Jesse Benitez MD Technologist:Nataliya Blas, RT(R)(CT) CTDI: DLP: Trnscb Date/Time: 04/13/2023 (1853) [email or web address] Orig Print D/T: S: 04/13/2023 (1856) PAGE 2 Signed Report- XR PELVIS 07/28 [id number] 18:03:00 [facility] 2000 Sex: M FAX: Jesse Benitez [place]: St: PRE Name: MARTÍNEZ CHO [facility] : 2000 Age/S: 23/M [address] [address] Unit #: [id number] Loc: [place] [address] Phys: Jesse Benitez MD Acct: [id number] Dis Date: Status: PRE ER PHONE #: [phone] Exam Date: 04/13/2023 1748 FAX #: [phone] Reason: PELVIC PAIN EXAMS: CPT CODE: [id number] XR PELVIS 1/2 VIEWS 12029 EXAM: - XR PELVIS 1/2 VIEWS LOCATION: H47 HISTORY: PELVIC PAIN COMPARISON: None available at the time of interpretation. FINDINGS: Single frontal view of the pelvis. No acute fracture or malalignment. No soft tissue findingsare apparent. IMPRESSION: No acute findings. at 1803 Reported and signed by: Jameson Oro M.D. CC: Jesse Benitez MD Technologist: RT Royal(Janie) Trnscrd Date/Time/By: 04/13/2023 (1802) : By: TamannaHV2 Orig Print D/T: S: 04/13/2023 (1805) PAGE 1 Signed Report- XR CHEST 1 [id number] 18:03:00 [facility] : 2000 Sex: M FAX: Jesse Benitez [place]: St: PRE Name: MARTÍNEZ CHO [facility] : 2000 Age/S: 23/M [address] [address] Unit #: [id number] Loc: [place] [address] Phys: Jesse Benitez MD Acct: [id number] Dis Date: Status: PRE ER PHONE #: [phone] Exam Date: 04/13/2023 1748 FAX #: [phone] Reason: CHEST PAIN EXAMS: CPT CODE: [id number] XR CHEST 1 V 81965 EXAM: - XR CHEST 1 V COMPARISON: None available at the time of interpretation. LOCATION: 7 HISTORY: CHEST PAIN FINDINGS: Single view of the chest. No indwelling lines or tubes. No pneumothorax. The lungs are clear without significant effusions. The mediastinal contours are unremarkable/unchanged. No acute osseous findings are present. IMPRESSION: No acute cardiopulmonary abnormality. at 1803 Reported and signed by: Jameson Oro M.D. CC: Jesse Benitez MD Technologist: Brent Metz RT(R) Trnscrd Date/Time/By: 04/13/2023 (1802) : By: [email or web address] Orig Print D/T: S: 04/13/2023 (1805) PAGE 1 Signed Report- XR KNEE 1 OR 2 V LT 2023-04-13 18:03:00 [facility] : 2000 Sex: M FAX: Jesse Benitez [place]: St: PRE Name: MARTÍNEZ CHO [facility] ER : 2000 Age/S: 23/M [address] [place] [address] Unit #: [id number] Loc: [place] [address] Phys: Jesse Benitez MD Acct: [id number] Dis Date: Status: PRE ER PHONE #: [phone] Exam Date: 04/13/2023 1749 FAX #: [phone] Reason: KNEE PAIN EXAMS: CPT CODE: [id number] XR KNEE 1 OR 2 V LT 13432 EXAM: - XR KNEE 1 OR 2 V LT LOCATION: H47 HISTORY: KNEE PAIN COMPARISON: None available at the time of interpretation. FINDINGS: Frontal, lateral views of the left knee are provided. No acute fracture or malalignment. No significant knee joint effusion. No soft tissue findings are apparent. IMPRESSION: No acute fracture. at 1803 Reported and signed by: Jameson Oro M.D. CC: Jesse Benitez MD Technologist: RT Royal(R) Trnscrd Date/Time/By: 04/13/2023 (1802) : By: [email or web address] Orig Print D/T: S: 04/13/2023 (1806) PAGE 1 Signed ReportLactic Acid Whole [id number] 23:13:15* Test Item Value Reference Range Interpretation Comme [facility] LACTIC ACID (test code = 8550684273) 9.70 mmol/L 0.50-2.20 H Lab Interpretation (test cod e = 74537-4) Abnormal [facility] / [id number] 14:45:48* Test Item Value Reference Range Interpretation Comme nts PROTIME PATIENT (test code = 5964-2) 12.2 See_Comment [Automated messa ge] The system which generated this result transmitted reference range: 10.1 - 12.6 Seconds. The reference range was not used to interpret this result as normal/abnormal. INR (test code = 6301-6) 1.1 Normal INR <1.1; Warfarin Therapeutic range 2.0 to 3.0 or 2.5 to 3.5, depending upon the indications. Lab Interpretation (test code = 87019-1) Normal [facility]. METABOLIC PANEL ([id number] 14:22:04* Test Item Value Reference Range Interpretation Comme nts NA (test code = 6323320544) 139 mmol/L 135-145 K (test code = 8321706048) 4.0 mmol/L 3.5-5.0 CL (test code = 0520434544) 103 mmol/L 98-108 CO2 TOTAL (test code = 6805801617) 27 mmol/L 23-31 AGAP (test code = 2504880554) 9 2-16 BUN (test code = 9614955932) 10 mg/dL 7-23 GLUCOSE (test code = 6958763605) 94 mg/dL 70-110 CREATININE (test code = 6268047412) 0.83 mg/dL 0.60-1.25 TOTAL BILI (test code = 7647504206) 0.4 mg/dL 0.1-1.1 CALCIUM (test code = 8816934222) 8.7 mg/dL 8.6-10.6 T PROTEIN (test code = 5859011546) 6.8 g/dL 6.3-8.2 ALBUMIN (test code = 9312101872) 4.0 g/dL 3.5-5.0 ALK PHOS (test code = 9925384689) 68 U/L 34-122 ALTv (test code = 1742-6) 24 U/L 5-50 AST(SGOT) (test code = 8156061413) 25 U/L 13-40 eGFR (test code = 9591240719) 113.8 mL/min/1.73m2 RODOLFO (test code = RODOLFO) Association of Glomerular Filtration Rate (GFR) and Staging of Kidney Disease* + + +- +| GFR (mL/min/1.73 m2) ?| With Kidney Damage ?| ?Without Kidney Damage+ ------+ ----+ ------+| ?>90 ?| ?Stage one ?| ? Normal ?+ -+ + -+| ?60-89 ?| ?Stage two ?| ? Decreased GFR ? + + +- +| ?30-59 ?| ?Stage three ?| ? Stage three ? + + +- +| ?15-29 ?| ?Stage four ? | ? Stage four ?+ -+ + -+| ?<15 (or dialysis) ? ?| ?Stage five ? | ? Stage five ?+ -+ + -+ *Each stage assumes the associated GFR level has been in effect for at least three months. ?Stages 1 to 5, with or without kidney disease, indicate chronic kidney disease. Notes: Determination of stages one and two (with eGFR >59mL/min/1.73 m2) requires estimation of kidney damage for at least three months as defined by structural or functional abnormalities of the kidney, manifested by either:Pathological abnormalities or Markers of kidney damage (including abnormalities in the composition of the blood or urine or abnormalities in imaging tests). [facility] WITH [id number] 14:08:25* Test Item Value Reference Range Interpretation Comme nts WBC (test code = 6690-2) 6.88 See_Comment [Automated [employer]] The system which generated this result transmitted reference range: 4.20 - 10.70 10*3/?L. The reference range was not used to interpret this result as normal/abnormal. RBC (test code = 789-8) 4.83 See_Comment [[employer]] The system which generated this result transmitted reference range: 4.26 - 5.52 10*6/?L. The reference range was not used to interpret this result as normal/abnormal. HGB (test code = 718-7) 14.5 g/dL 12.2-16.4 HCT (test code = 4544-3) 43.5 % 38.4-49.3 MCV (test code = 787-2) 90.1 fL 81.7-95.6 MCH (test code = 785-6) 30.0 pg 26.1-32.7 MCHC (test code = 786-4) 33.3 g/dL 31.2-35.0 RDW-SD (test code = 08018-3) 41.3 fL 38.5-51.6 RDW-CV (test code = 788-0) 12.6 % 12.1-15.4 PLT (test code = 777-3) 231 See_Comment [Automated [employer]] The system which generated this result transmitted reference range: 150 - 328 10*3/?L. The reference range was not used to interpret this result as normal/abnormal. MPV (test code = 23591-7) 9.1 fL 9.8-13.0 L NRBC/100 WBC (test code = 0408882301) 0.0 See_Comment [Automated [employer] ssage] The system which generated this result transmitted reference range: 0.0 - 10.0 /100 WBCs. The reference range was not used to interpret this result as normal/abnormal. NRBC x10^3 (test code = 8824814399) See_Comment [Automated [employer]] The system which generated this result transmitted reference range: 10*3/?L. The reference range was not used to interpret this result as normal/abnormal. GRAN MAT (NEUT) % (test code = 770-8) 61.5 % IMM GRAN % (test code = 2120155202) 0.60 % LYMPH % (test code = 736-9) 29.8 % MONO % (test code = 5905-5) 6.3 % EOS % (test code = 713-8) 1.5 % BASO % (test code = 706-2) 0.3 % GRAN MAT x10^3(ANC) (test code = 4487663770) 4.24 10*3/uL 1.99-6.95 IMM GRAN x10^3 (test code = 6312067840) 0.04 10*3/uL 0.00-0.06 LYMPH x10^3 (test code = 731-0) 2.05 10*3/uL 1.09-3.23 MONO x10^3 (test code = 742-7) 0.43 10*3/uL 0.36-1.02 EOS x10^3 (test code = 711-2) 0.10 10*3/uL 0.06-0.53 BASO x10^3 (test code = 704-7) 0.01-0.09 Lab Interpretation (test code = 07957-4) Abnormal [facility] Acid Whole [id number] 23:51:59* Test Item Value Reference Range Interpretation Comme nts LACTIC ACID (test code = 3670944975) 1.42 mmol/L 0.50-2.20 Lab Interpretation (test cod e = 64158-4) Normal [facility] [id number] 21:13:44* Test Item Value Reference Range Interpretation Comme nts LACTIC ACID (test code = 9485673172) 10.10 mmol/L 0.50-2.20 H Lab Interpretation (test cod e = 34228-7) Abnormal [facility]. METABOLIC PANEL (26644)2022-12-20 23:28:07* Test Item Value Reference Range Interpretation Comme nts NA (test code = 4302363199) 138 mmol/L 135-145 K (test code = 5614478533) 4.1 mmol/L 3.5-5.0 CL (test code = 9442783677) 107 mmol/L 98-108 CO2 TOTAL (test code = 1476189467) 15 mmol/L 23-31 L AGAP (test code = 4489744340) 16 2-16 BUN (test code = 1163428416) 5 mg/dL 7-23 L GLUCOSE (test code = 0055614602) 146 mg/dL 70-110 H CREATININE (test code = 4571586199) 0.78 mg/dL 0.60-1.25 TOTAL BILI (test code = 6227118110) 0.4 mg/dL 0.1-1.1 CALCIUM (test code = 4285335594) 9.3 mg/dL 8.6-10.6 T PROTEIN (test code = 5910087067) 7.6 g/dL 6.3-8.2 ALBUMIN (test code = 5700453167) 4.9 g/dL 3.5-5.0 ALK PHOS (test code = 4466035046) 75 U/L 34-122 ALTv (test code = 1742-6) 46 U/L 5-50 AST(SGOT) (test code = 5155132005) 33 U/L 13-40 eGFR (test code = 0342953462) 122.3 mL/min/1.73m2 RODOLFO (test code = RODOLFO) Association of Glomerular Filtration Rate (GFR) and Staging of Kidney Disease* + --+ --+ ------+| GFR (mL/min/1.73 m2) ?| With Kidney Damage ?| ?Without Kidney Damage+ --------+ --------+ +| ?>90 ?| ?Stage one ?| ? Normal ?+ ---+ ---+ -------+| ?60-89 ?| ?Stage two ?| ? Decreased GFR ? + --+ --+ ------+| ?30-59 ?| ?Stage three ?| ? Stage three ? + --+ --+ ------+| ?15-29 ?| ?Stage four ? | ? Stage four ?+ ---+ ---+ -------+| ?<15 (or dialysis) ? ?| ?Stage five ? | ? Stage five ?+ ---+ ---+ -------+ *Each stage assumes the associated GFR level has been in effect for at least three months. ?Stages 1 to 5, with or without kidney disease, indicate chronic kidney disease. Notes: Determination of stages one and two (with eGFR >59mL/min/1.73 m2) requires estimation of kidney damage for at least three months as defined by structural or functional abnormalities of the kidney, manifested by either:Pathological abnormalities or Markers of kidney damage (including abnormalities in the composition of the blood or urine or abnormalities in imaging tests). Lab Interpretation (test code = 46903-3) Abnormal [facility] WITH [id number] 23:09:09* Test Item Value Reference Range Interpretation Comme nts WBC (test code = 6690-2) 14.33 See_Comment H [Automated [employer]] The system which generated this result transmitted reference range: 4.20 - 10.70 10*3/?L. The reference range was not used to interpret this result as normal/abnormal. RBC (test code = 789-8) 5.23 See_Comment [Automated [employer]] The system which generated this result transmitted reference range: 4.26 - 5.52 10*6/?L. The reference range was not used to interpret this result as normal/abnormal. HGB (test code = 718-7) 15.6 g/dL 12.2-16.4 HCT (test code = 4544-3) 47.1 % 38.4-49.3 MCV (test code = 787-2) 90.1 fL 81.7-95.6 MCH (test code = 785-6) 29.8 pg 26.1-32.7 MCHC (test code = 786-4) 33.1 g/dL 31.2-35.0 RDW-SD (test code = 05235-7) 43.3 fL 38.5-51.6 RDW-CV (test code = 788-0) 13.2 % 12.1-15.4 PLT (test code = 777-3) 235 See_Comment [Automated [employer] ge] The system which generated this result transmitted reference range: 150 - 328 10*3/?L. The reference range was not used to interpret this result as normal/abnormal. MPV (test code = 26283-9) 9.2 fL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 fever , purulent drainage, facial swelling/erythema or any other symptoms. General Initial Greet Date/Time 04/17/232158 Presentation Chief Complaint Wound check Hx Obtained From Patient Review of Systems ROS Statements All systems rev neg except as marked. Free Text ROS Notes Free Text ROS Notes Wound check Past Medical History - Adult Stated Complaint NEEDS LAC CHECKED OUT Allergies Coded Allergies: No Known Allergies (04/13/23) Home Medications Active Scripts levETIRAcetam (KEPPRA) 500 MG PO BID 30 Days #60 TABS Ref 2 Prov: 04/13/23 Smoking status for patients 13 years old or older: Never Smoker Physical Exam Vital Signs Vital Signs First Documented: Result Date Time Pulse Ox 99 04/17 2216 B/P 118/77 04/17 221 B/P Mean 90 04/17 2216 O2 Delivery Room air 04/17 2216 Temp 37.0 04/17 2216 Pulse 90 04/17 2216 Resp 16 04/17 2216 Last Documented: Result Date Time Pulse Ox 99 04/17 2216 B/P 118/77 04/17 221 B/P Mean 90 04/17 2216 O2 Delivery Room air 04/17 2216 Temp 37.0 04/17 2216 Pulse 90 04/17 2216 Resp 16 04/17 2216 Review of Vital Signs Reviewed Free Text PE Notes Free Text PE Notes Gen: Well appearing, appears comfortable, cooperative Head: Normocephalic Eyes: Pupils midline, sclera NL Throat: Moist mucous membranes, handling secretions. Airway patent. Neck: supple Lungs: CTA all lobes. Respirations NL. No wheezing, No rhonchi, No dyspnea. No stridor or accessory muscle use. Heart/Chest: Regular rhythm, rate. No murmurs. Ext: no obvious deformity Neuro: awake and alert, speech NL for age, behavior age-appropriate. Skin: color NL, normal temperature, intact, no visible rashes. + L upper lip lac with 3 intact sutures to external lip with scab formation. The wound is open on the inner lip aspect w/o visible sutures w/ visible debris inside the wound. No erythema or facial swelling Procedures Free Text Proc Notes Free Text Proc Notes Debris from the inner portion of the laceration removed with 2 x 2 gauze Re-Evaluation MDM Free Text MDM Notes Free Text MDM Notes Patient presenting with above clinical history and PE findings. Review of EHR notes reported 3 prior sutures. 3 sutures noted on exam today. The wound on the inner aspect of the lip presumed to have been left open to heal without closure. Area was cleaned. Patient will be placed on empiric antibiotics and recommended to return to the ER in 3 days for suture removal. No current evidence of cellulitis, abscess formation ED Course Medication(s) Ordered Medication(s) Ordered: Anti-Infective Agents Sig/Anca Start time Last Medication Dose Route Stop Time Status Admin Cephalexin 500 MG X1ED STA 04/17 2219 DC 04/17 PO 04/17 Trimethoprim/ 1 TAB X1ED STA 04/17 2218 DC 04/17 Sulfamethoxazole PO 04/17 Central Nervous System Agents Sig/Anca Start time Last Medication Dose Route Stop Time Status Admin Hydrocodone Bitart/ 1 TAB X1ED STA 04/17 2219 DC 04/17 Acetaminophen PO 04/17 Patient Discharge Departure Vital Signs/Condition Vital Signs First Documented: Result Date Time Pulse Ox 99 04/17 2216 B/P 118/77 04/17 2216 B/P Mean 90 04/17 2216 O2 Delivery Room air 04/17 2216 Temp 37.0 04/17 2216 Pulse 90 04/17 2216 Resp 16 04/17 2216 Last Documented: Result Date Time Pulse Ox 99 04/17 2216 B/P 118/77 04/17 221 B/P Mean 90 04/17 2216 O2 Delivery Room air 04/17 2216 Temp 37.0 04/17 2216 Pulse 90 04/17 2216 Resp 16 04/17 2216 All vital signs available at the time of this entry have been reviewed. Condition Stable Clinical Impression Clinical Impression Primary Impression: Laceration of lip Secondary Impressions: Wound dehiscence Disposition Decision Discharge )( Discharged to Home Yes )( Time 2229 )( Date 04/17/23 Discharge/Care Plan Counseled Regarding Diagnosis, Prescriptions, Need for follow-up, When to return to ED (Auto) Prescriptions Current Visit Scripts SULFAMETHOXAZOLE/TMP (BACTRIM DS 800/160 MG) 1 TAB PO Q12H SULFAMETHOXAZOLE/TMP (BACTRIM DS 800/160 MG) 1 TAB PO Q12H #14 TABS UNTIL FINISHED CEPHALEXIN (KEFLEX) 500 MG PO BID 5 Days #10 CAPS IBUPROFEN (MOTRIN) 800 MG PO TID PRN PRN PAIN IBUPROFEN (MOTRIN) 800 MG PO TID PRN PRN PAIN #15 TABS Patient Instructions ED Laceration, Lip or Mouth Additional Instructions You presented to the ER today for wound evaluation. The wound shows 3 intact sutures and according to your chart, there was 3 sutures placed up on the . Please practice oral hygiene by rinsing/gargling with a mouthwash and/or water/ salt solution 3 times a day. I have prescribed you medications to prevent infection from forming as well as pain medication. Return to the ER on 2022 for suture removal Isaac Mcgrath 04/17/23 2304: Patient Discharge Departure Supervising Physician Note MidLv Saw Pt Alone I have reviewed the PA/ACCOUNTING GENERALIST's note and plan of care. I was available for consultation as needed at all times during the patient's visit in the emergency department. I agree with the clinical impression, plan and disposition. at 2259 at 230 RPT #:[id number] END OF REPORT [facility] 2023-04-13 17:24:00 [facility] ([facility]) EMERGENCY PROVIDER REPORT REPORT#:[id number] REPORT STATUS: Signed DATE:04/13/23 TIME: 172 PATIENT: MARTÍNEZ CHO UNIT #: [id number] ROOM/BED: AGE: 23 SEX: M PCP PHYS: No Primary or Family Physician SERVICE AUTHOR: Jesse Benitez MD * ALL edits or amendments must be made on the electronic/computer document * HPI-Seizure Free Text HPI Notes Free Text HPI Notes 23-year-old man, history of seizure disorder, reports taking monthly meds, but does not know which medication. Reports he has not taken it this month. Reported to have 1 minute generalized tonic-clonic seizure with fall. Notable lip lack. Patient complaining of neck pain. General Initial Greet Date/Time 04/13/231713 Presentation Chief Complaint Seizure, generalized Review of Systems Free Text ROS Notes Free Text ROS Notes Review of systems was performed, pertinent positives and negatives noted in HPI Past Medical History - Adult Stated Complaint SEIZURE, HEAD SRIKE, LIP LAC Allergies Coded Allergies: No Known Allergies (04/13/23) Smoking status for patients 13 years old or older: Current every day smoker Physical Exam Vital Signs Vital Signs First Documented: Result Date Time Pulse Ox 100 04/13 1658 B/P 138/80 04/13 1658 B/P Mean 99 04/13 1658 O2 Delivery Room air 04/13 165 Temp 36.8 04/13 165 Pulse 101 04/13 1658 Resp 18 04/13 1658 Last Documented: Result Date Time Pulse Ox 100 04/13 2140 B/P 130/77 04/13 2140 B/P Mean 96 04/13 2140 Pulse 77 04/13 2140 Resp 23 04/13 1920 O2 Delivery Room air 04/13 1658 Temp 36.8 04/13 1658 Review of Vital Signs Reviewed Free Text PE Notes Free Text PE Notes GENERAL: Generally well-appearing patient, appropriate appearance for age, no acute distress. On backboard with c-collar in place. HEENT: Dried blood and mouth, 12 mm left upper lip laceration NECK: Positive for midline cervical tenderness. No bruising or perez to the anterior neck. CARDIOVASCULAR: Normal rate and regular rhythm, normal S1/S1, no murmurs, rubs, or gallops appreciated. 2+ radial pulse symmetric bilaterally. LUNGS: Clear to auscultation bilaterally, moving air well. No crackles or wheezes are heard. No bruising on the chest. No tenderness to palpation of the chest. ABDOMEN: Soft, nontender, nondistended abdomen. No bruising noted. BACK: No obvious deformity. No midline spinal tenderness or step-offs. MSK/EXTREMITIES: Without cyanosis, clubbing or edema. Capillary refill appropriate at fingertips <3 seconds. SKIN: Warm and dry. No lacerations noted. NEUROLOGICAL: Alert and oriented, moving all 4 extremities. GCS 15. Interpretation Diagnostics Lab Results Interpretation Results Laboratory Tests 04/13/23 1810: [Embedded Image Not Available] Laboratory Tests: 04/13 Chemistry Sodium (134 - 147 mEq/L) 137 Potassium (3.4 - 5.0 mEq/L) 4.3 Chloride (100 - 108 mEq/L) 106 Carbon Dioxide (21 - 33 mEq/l) 26 Anion Gap (0 - 20) 9 BUN (7 - 25 mg/dL) 12 Creatinine (0.6 - 1.3 mg/dL) 1.0 Glomerular Filtr Rate (110 - 120) 107.1 L Glucose (77 - 141 mg/dL) 104 Calcium (8.0 - 10.5 mg/dL) 8.9 Total Bilirubin (0.0 - 1.0 mg/dL) 0.30 Direct Bilirubin (0.1 - 0.3 MG/DL) 0.10 Indirect Bilirubin (MG/DL) 0.20 AST (8 - 34 IUnit/L) 19 ALT (10 - 49 IUnit/L) 14 Total Alk Phosphatase (20 - 125 IUnit/L) 80 Troponin I High Sens (0 - 54 ng/L) 4 Total Protein (6.4 - 8.2 g/dL) 6.9 Albumin (3.4 - 5.0 g/dL) 4.10 Coagulation INR (0.8 - 1.2) 1.1 PTT ([place]) (25.0 - 39.5 Seconds) 44.2 H PT Patient/Control Mix (9.3 - 12.9 SECONDS) 12.3 Hematology WBC (4.5 - 11.0 x10 3/uL) 18.2 H RBC (4.00 - 5.60 x10 6/uL) 4.95 Hgb (12.5 - 16.9 g/dL) 15.0 Hct (37.5 - 50.7 %) 44.9 MCV (81.0 - 99.0 fL) 90.7 MCH (27.0 - 33.0 pg) 30.3 MCHC (33.0 - 37.0 g/dL) 33.4 RDW (11.5 - 14.5 %) 12.5 Plt Count (150 - 400 x10 3/uL) 237 MPV (7.0 - 9.0 fL) 9.7 H Neut % (Auto) (56.0 - 77.0 %) 87.7 H Lymph % (Auto) (14.0 - 32.0 %) 7.0 L [place] % (Auto) (4.8 - 9.0 %) 4.3 L Eos % (Auto) (0.3 - 3.7 %) 0.2 L Baso % (Auto) (0.0 - 2.0 %) 0.1 Neut # (Auto) (2.0 - 7.6 x10 3/uL) 15.95 H Lymph # (Auto) (1.0 - 3.8 x10 3/uL) 1.27 [place] # (Auto) (0.1 - 0.8 x10 3/uL) 0.78 Eos # (Auto) (0.0 - 0.2 x10 3/uL) 0.03 Baso # (Auto) (0.0 - 0.2 x10 3/uL) 0.02 Abs Immat Gran (auto) (0.00 - 0.03 x10 3/uL) 0.13 H Add Manual Diff NO Immature Gran % (0.0 - 2.0 %) 0.7 Nucleated RBC % (0 - 0 %) 0.0 Nucleated RBCs # (Man) (0.0 - 0.1 x10 3/uL) 0.00 Toxicology Urine Opiates Screen (NEGATIVE) NEGATIVE Urine Barbiturates (NEGATIVE) NEGATIVE Ur Phencyclidine Scrn (NEGATIVE) NEGATIVE Ur Amphetamines Screen (NEGATIVE) NEGATIVE U Benzodiazepines Scrn (NEGATIVE) POSITIVE H Urine Cocaine Screen (NEGATIVE) POSITIVE H Urine Cannabinoids (NEGATIVE) POSITIVE H Ethyl Alcohol (<10 mg/dL) 5.0 Urines Urine Color (YEL/STRAW) YELLOW Urine Appearance (CLEAR) CLEAR Urine pH (5.0 - 7.0) 5.0 Ur Specific [place] (1.005 - 1.030) 1.024 Urine Protein (NEGATIVE) NEGATIVE Urine Glucose (UA) (NEGATIVE) NEGATIVE Urine Ketones (NEGATIVE) NEGATIVE Urine Blood (NEGATIVE) NEGATIVE Urine Nitrite (NEGATIVE) NEGATIVE Urine Bilirubin (NEGATIVE) NEGATIVE Urine Urobilinogen (0.2 - 1.0 mg/dL) 0.2 Ur Leukocyte Esterase (NEGATIVE) NEGATIVE Urine RBC (0 - 3 RBC/HPF) 0-3 Urine WBC (0 - 3 WBC/HPF) 0-3 Ur Squamous Epith Cells (NONE SEEN /HPF) 0-5 Urine Bacteria (NONE SEEN /HPF) NONE SEEN Urine Mucus (NONE SEEN /LPF) TRACE Recent Impressions: RADIOLOGY - XR PELVIS 1/2 VIEWS 04/13 1748 Report Impression - Status: SIGNED Entered: 04/13/2023 180 IMPRESSION: No acute findings. Impression By: Sarah Oro M.D. RADIOLOGY - XR CHEST 1 V 04/13 1748 Report Impression - Status: SIGNED Entered: 04/13/2023 180 IMPRESSION: No acute cardiopulmonary abnormality. Impression By: Sarah Oro M.D. RADIOLOGY - XR KNEE 1 OR 2 V LT 04/13 1749 Report Impression - Status: SIGNED Entered: 04/13/2023 180 IMPRESSION: No acute fracture. Impression By: Sarah Oro M.D. CAT SCAN - CT HEAD/BRAIN W/O CONT 04/13 1830 Report Impression - Status: SIGNED Entered: 04/13/2023 1857 IMPRESSION: Small right frontal scalp hematoma. No other acute traumatic injury. Impression By: [email or web address] Tushar Stinson M.D. CAT SCAN - CT C-SPINE W/O CONT 04/13 1831 Report Impression - Status: SIGNED Entered: 04/13/2023 1915 IMPRESSION: Unremarkable CT examination of the cervical spine. Impression By: [email or web address] - Beto Roman M.D. ECG #1 Interpretation Text/Dict Note EKG from 04/13/2023 at 18-14, performed for trauma, seizure Interpreted by myself, ED physician Sinus rhythm, rate 72 Normal axis Normal intervals No ST elevation or ST depression suggestive of ischemia Procedures Laceration Management #1 Time Spent (minutes) 15 Procedure Performed by ED physician Consent/Setup/Site Prep Verified correct patient, Informed consent provided, Consent from patient, Time-out performed, Hand hygiene observed )( Location of Wound Left upper lip Wound Length (cm) 1.2 Local Anesthesia Lidocaine 1% Wound Preparation Normal saline )( Debridement None Irrigation Copious Repair Skin Prolene Suture Size - Skin 4-0 # Sutures - Skin 3 Estimated Blood Loss (mL) 0 Post-Procedure/Complications Condition improved, Tolerated procedure well, Patient stable Re-Evaluation MDM Free Text MDM Notes Free Text MDM Notes 23-year-old history of seizure, presents with EMS after reported seizure prior to arrival with fall, head trauma, obvious lip laceration patient complaining of pain to neck and lip as well as left knee We will get broad evaluation with labs, CT, x-rays CT Head reviewed and interpreted by me, ED physician. No acute bleed identified. Patient reports he does not have current neurologist, missed his last monthly dose of antiepileptic medication Loaded with Keppra here Laceration repaired at bedside without difficulty, discussed with patient the need for suture removal in approximately 7 days, will seek care through primary care office or return to nearest ED/urgent care Discussed seizure precautions particularly no risky activities such as driving using a bath or swimming, patient expresses understanding Will prescribe antiepileptic medication to bridge until neurology follow-up All questions answered at bedside. Discussed strict return precautions. Patient expressed understanding and agreement with plan. Discharged in stable condition. ED Course Medication(s) Ordered Medication(s) Ordered: Cardiovascular Drugs Sig/Anca Start time Last Medication Dose Route Stop Time Status Admin Lidocaine HCl 5 ML X1ED STA 04/13 1847 DC 04/13 LOCAL 04/13 1848 1999 Central Nervous System Agents Sig/Anca Start time Last Medication Dose Route Stop Time Status Admin Acetaminophen 1,000 MG X1ED STA 04/13 2132 DC 04/13 PO 04/13 2133 2142 Levetiracetam 500 MG X1ED STA 04/13 2107 DC 04/13 PO 04/13 2108 2142 Morphine Sulfate 4 MG X1ED STA 04/13 1934 DC 04/13 IV 04/13 193 1940 Levetiracetam 2,000 MG X1ED STA 04/13 1722 DC 04/13 IV 04/13 1723 1748 Electrolytic, Caloric, And Dia Sig/Anca Start time Last Medication Dose Route Stop Time Status Admin Sodium Chloride 1,000 ML X1ED STA 04/13 1720 DC 04/13 IV 04/13 1819 1748 Gastrointestinal Drugs Sig/Anca Start time Last Medication Dose Route Stop Time Status Admin Ondansetron HCl 4 MG X1ED STA 04/13 1934 DC 04/13 IV 04/13 1935 1945 Serums, Toxoids, And Vaccines Sig/Anca Start time Last Medication Dose Route Stop Time Status Admin Diphtheria/Tetanus/ 0.5 ML X1ED STA 04/13 1720 DC 04/13 Acell Pertussis IM 04/13 1721 1752 Patient Discharge Departure Vital Signs/Condition Vital Signs First Documented: Result Date Time Pulse Ox 100 04/13 1658 B/P 138/80 04/13 1658 B/P Mean 99 04/13 1658 O2 Delivery Room air 04/13 1658 Temp 36.8 04/13 1658 Pulse 101 04/13 1658 Resp 18 04/13 1658 Last Documented: Result Date Time Pulse Ox 100 04/13 2140 B/P 130/77 04/13 2140 B/P Mean 96 04/13 2140 Pulse 77 04/13 2140 Resp 23 04/13 1920 O2 Delivery Room air 04/13 1658 Temp 36.8 04/13 1658 All vital signs available at the time of this entry have been reviewed. Condition Stable, Improved Clinical Impression Clinical Impression Primary Impression: Seizure Secondary Impressions: Lip laceration Time of Impression 2106 Disposition Decision Discharge )( Discharged to Home Yes )( Time 2106 )( Date 04/13/23 Discharge/Care Plan (Auto) Prescriptions Current Visit Scripts levETIRAcetam (KEPPRA) 500 MG PO BID 30 Days #60 TABS Ref 2 Patient Instructions ED Seizure, Recurrent (Adult) Referrals Referral: Primary Care Follow-Up: Call for appointment Provider Referral: Enio Aleman MD Follow-Up: First Available Address: [address] [place] [address], [address] [place] [address] Departure Forms [facility] at 0208 RPT #:[id number] END OF REPORT [facility] 2023-02-15 19:55:39 Formatting of this n ote might be different from the original. Martínez Cho is awake alert. No distress noted. Discharge instructions and prescriptions discussed with patient. Family verbalized understanding. D/c home to follow up with pcp. Phi Chisholm RN [facility] 2023-02-15 19:08:02 Formatting of this n ote might be different from the original. Report given to GODFREY Schafer. Chief complaint, assessment findings and orders reviewed. Plan of care discussed with patient and receiving nurse. Patient verbalized understanding. [facility] 2023-02-15 17:46:47 Formatting of this n ote might be different from the original. Martínez Cho is a 23 year old male presents to the ED afterhaving a seizure at work, pt states he does not remember the name of his medication, and does not remember if he too it today. Pt alert and oriented x4 on arrival, no resp distress, complains of nausea. Cee Andrade RN [facility]"
--- NOTE | 2024-05-04 10:42 | RAD REPORT ---
EXAM: CT brain without contrast HISTORY: SEIZURE COMPARISON: None TECHNIQUE: Multiple contiguous axial images were obtained and a CT of the brain without contrast. Sag ittal and coronal reformats were performed. One or more of the following dose reduction techniques were used: Automated exposure control, adjust ment of the mA and/or kV according to patient size, and/or iterative reconstruction. FINDINGS: No evidence of hydrocephalus, intracranial hemorrhage, or extra-axial fluid collection. The brain is normal in morphology. No evidence of midline shift or areas of brain edema. The calvarium is intact. The visualized paranasal sinuses and mastoid air cells are essentially clear . IMPRESSION: No evidence of acute intracranial abnormality.
[2024-05-04] MEDS ORDERED: DIAZEPAM 10 MG/2 ML INJ SYRINGE ONE (10:55)
[2024-05-04] MEDS ORDERED: ONDANSETRON 4 MG/2 ML VIAL ONE (10:55)
[2024-05-04 11:00] LABS: Absolute Basophils 0.1 K/uL (0-0.5); Absolute Lymphocytes (CBC) 1.2 K/uL (0.7-4.9); Absolute Monocytes 0.4 K/uL (0.1-1.3); Absolute Neutrophil 8.8 K/uL (1.8-8.0); Basophils % 0.5 % (0-1.3); Eosinophils % 0.4 % (0-4.4); Hematocrit 44.1 % (39.6-49.0); Hemoglobin 14.4 g/dL (13.6-17.9); Lymphocytes % 11.4 % (15.3-44.8); MCH 29.6 pg (27.0-35.0); MCHC 32.6 g/dL (32.0-36.0); MCV 90.8 fL (80-100); MPV 7.3 fL (7.6-11.3); Monocytes % 3.8 % (3.3-12.3); Neutrophils % 83.9 % (41.7-73.7); Platelets 252 thou/uL (152-406); RBC Red Blood Cell Count 4.86 M/uL (4.33-5.43); Red Cell Distribution Width 13.5 % (12.1-15.2)
[2024-05-04 11:19] LABS: ALT/SGPT 19 U/L (16-61); AST/SGOT 17 U/L (15-37); Albumin 3.2 g/dL (3.4-5.0); Alkaline Phosphatase 69 U/L (45-117); BUN Blood Urea Nitrogen 9 mg/dL (7-18); Bicarbonate 23 mEq/L (21-32); Bilirubin Total 0.2 mg/dL (0.2-1.0); Globulin 3.2 g/dL (2.3-3.5); Glomerular Filtration Rate 78 ml/min (=/>90); Glucose Level 121 mg/dL (74-106); Protein, Total 6.4 g/dL (6.4-8.2); Sodium Level 138 mEq/L (136-145)
[2024-05-04 11:21] LABS: Bilirubin Direct < 0.2 mg/dL (0-0.2)
--- NOTE | 2024-05-04 11:31 | ER ---
Nurse's Notes [facility] Name: Aden Gee Age: 24 yrs Sex: Male : 2000 Arrival Date: 05/04/2024 Time: 10:20 Bed 7 Private MD: Diagnosis: Other seizures Presentation: 05/04 10:44 Chief complaint: EMS states: patient checked himself into [facility] rehab this ko1 morning, staff heard a scream and said he was having seizure like activity for approx 2 minutes, when EMS arrived he was A\\T\\Ox4 and ambulated to the stretcher. Per patient, he had a seizure about 4 months ago, last drug use was 3 days ago "meth and cocaine". Not on any meds for seizures and has never been officially diagnosed. Coronavirus screen: At this time, the client does not indicate any symptoms associated with coronavirus-19. Ebola Screen: No symptoms or risks identified at this time. Initial Sepsis Screen: Does the patient meet any 2 criteria? No. Patient's initial sepsis screen is negative. Does the patient have a suspected source of infection? No. Patient's initial sepsis screen is negative. Risk Assessment: Do you want to hurt yourself or someone else? Patient reports no desire to harm self or others. Onset of symptoms was May 04, 2024. Activity prior to arrival: seizure. Transition of care: [facility]. 10:44 Method Of Arrival: EMS: [facility] ko1 10:44 Acuity: NIKUNJ 3 ko1 Triage Assessment: 10:48 General: Appears in no apparent distress. comfortable, Behavior is calm, cooperative, ko1 appropriate for age. Pain: Complains of pain in left parietal area, right parietal area and base of the skull. EENT: No deficits noted. Neuro: Seizure activity reported prior to arrival. Seizure lasted approximately 2 minutes. Cardiovascular: No deficits noted. Respiratory: No deficits noted. GI: No deficits noted. : No deficits noted. Derm: No deficits noted. Musculoskeletal: No deficits noted. Historical: - Allergies: 10:48 No Known Allergies; ko1 - Home Meds: 10:48 None [Active]; ko1 - PMHx: 10:48 Seizure; ko1 - PSHx: 10:48 None; ko1 - Immunization history:: Adult Immunizations unknown. - Infectious Disease History:: Denies. - Social history:: Smoking status: Patient denies any tobacco usage or history of. Patient uses street drugs, cocaine, marijuana, Methamphetamine (Meth). Screenin:50 [facility] ED Fall Risk Assessment (Adult) History of falling in the last 3 months, ko1 including since admission Yes- single mechanical fall (1 pt) Confusion or Disorientation No (0 pts) Intoxicated or Sedated No (0 pts) Impaired Gait No (0 pts) Mobility Assist Device Used No (0 pt) Altered Elimination No (0 pt) Score/Fall Risk Level 0 - 2 = Low Risk Oriented to surroundings, Maintained a safe environment, Educated pt \\T\\ family on fall prevention, incl call for assistance when getting out of bed, Provided non-skid footwear, Hourly rounding (assess needs \\T\\ fall precautionary measures) done. Abuse screen: Denies threats or abuse. Denies injuries from another. Nutritional screening: No deficits noted. Tuberculosis screening: No symptoms or risk factors identified. Assessment: 10:50 Reassessment: see triage note. ko1 Vital Signs: 10:44 BP 130 / 78; Pulse 107; Resp 15; Temp 97; Pulse Ox 100% on R/A; ko1 11:29 BP 98 / 59; Pulse 97; Resp 16; Pulse Ox 100% on R/A; ko1 11:39 BP 110 / 60; Pulse 99; Resp 14; Pulse Ox 100% ; ko1 [place] Coma Score: 10:48 Eye Response: spontaneous(4). Motor Response: obeys commands(6). Verbal Response: ko1 oriented(5). Total: 15. ED Course: 10:20 Patient arrived in ED. ec2 10:20 Isaac Mcgrath MD is Attending Physician. ec2 10:36 CT Head Brain wo Cont In Process Unspecified. EDMS 10:48 Triage completed. ko1 10:48 Arm band placed on right wrist. Patient placed in an exam room, on a stretcher, on ko1 internet application developer, on pulse oximetry, Patient notified of wait time. 10:50 Patient requests liquids. ko1 10:50 Patient has correct armband on for positive identification. Bed in low position. Call ko1 light in reach. Side rails up X2. Seizure precautions initiated. Provided Education on: labs, meds. Pulse ox on. NIBP on. Door closed. Noise minimized. Lights dimmed. Warm blanket given. Pillow given. 10:50 No provider procedures requiring assistance completed. ko1 10:50 Initial lab(s) drawn, by ED staff, sent to lab. ko1 10:53 Hilda Aguirre, RN is Primary Nurse. ko1 10:53 Inserted saline lock: 20 gauge in left antecubital area, using aseptic technique. ll1 ,using aseptic technique. labeled with time/date/initials Blood collected. Flushed with 10 mL NS. 11:10 PO fluids given. ko1 11:10 EKG done, by ED staff, reviewed by Isaac Mcgrath MD. ko1 11:30 Marquis Al MD is Referral Physician. ec2 11:39 IV discontinued, intact, bleeding controlled, No redness/swelling at site. Pressure ko1 dressing applied. Administered Medications: 10:56 Drug: Ondansetron IVP 4 mg IVP once; over 2 minutes Route: IVP; Site: left antecubital; ko1 11:11 Follow up: Response: No adverse reaction ko1 10:59 Drug: Diazepam IVP 5 mg IVP once Route: IVP; Site: left antecubital; ko1 11:14 Follow up: Response: No adverse reaction; Anxiety decreased ko1 Medication: 10:50 VIS not applicable for this client. ko1 Outcome: 11:30 Discharge ordered by . ec2 11:57 Discharged to home ambulatory, ko1 11:57 Condition: stable 11:57 Discharge instructions given to patient, Instructed on discharge instructions, follow up and referral plans. Demonstrated understanding of instructions, follow-up care, 11:58 Patient left the ED. ko1 Signatures: Dispatcher [employer] Megan Cummings, RN RN ll1 Hilda Aguirre, RN RN ko1 Isaac Mcgrath MD MD ec2
--- NOTE | 2024-05-04 11:31 | EDPHYS ---
Physician Documentation [facility] Name: Aden Gee Age: 24 yrs Sex: Male : 2000 Arrival Date: 05/04/2024 Time: 10:20 Bed 7 Private MD: ED Physician Isaac Mcgrath HPI: 05/04 10:21 This 24 yrs old Male presents to ER via Unassigned with complaints of seizure. ec2 10:21 Patient with history of seizures however not diagnosed, Arrives today for evaluation of ec2 seizure activity. Patient was trying to check into rehab and subsequently had a seizure episode. Patient reports history of similar seizures, states that his last seizure was 3 to 4 months ago, states he has not seen a previous primary care doctor or neurologist for this. Reports otherwise some nausea, no fever, does report a headache associated with the fall. Patient otherwise with no recent illnesses, no cough and cold symptoms. 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 Historical: - Allergies: 10:48 No Known Allergies; ko1 - Home Meds: 10:48 None [Active]; ko1 - PMHx: 10:48 Seizure; ko1 - PSHx: 10:48 None; ko1 - Immunization history:: Adult Immunizations unknown. - Infectious Disease History:: Denies. - Social history:: Smoking status: Patient denies any tobacco usage or history of. Patient uses street drugs, cocaine, marijuana, Methamphetamine (Meth). ROS: 10:21 Constitutional: as per hpi ec2 Exam: 10:21 Constitutional: GEN: NAD Head: atraumatic Eyes: EOMI Ears: External ears are ec2 normal. CV: regular rate LUNGS: no respiratory distress ABD: non-distended SKIN: no evidence of rashes MSK: no evidence of trauma. Neuro: Cranial nerves II through XII intact, strength intact all 4 extremities, no pronator drift appreciated. Vital Signs: 10:44 BP 130 / 78; Pulse 107; Resp 15; Temp 97; Pulse Ox 100% on R/A; ko1 11:29 BP 98 / 59; Pulse 97; Resp 16; Pulse Ox 100% on R/A; ko1 11:39 BP 110 / 60; Pulse 99; Resp 14; Pulse Ox 100% ; ko1 [place] Coma Score: 10:48 Eye Response: spontaneous(4). Motor Response: obeys commands(6). Verbal Response: ko1 oriented(5). Total: 15. MDM: 10:20 Patient medically screened. ec2 10:21 Data reviewed: vital signs. ED course: Patient arrives today for evaluation of seizure ec2 activity. Examination remarkable for well-appearing nontoxic cooperative individual who is awake and alert and in no acute distress. Will obtain lab work, EKG, CT scan of the head. Evaluating for processes such as electrolyte disturbances, intracranial mass, arrhythmia. Will give the patient Zofran for the patient's nausea as well. . 11:16 ED course: EKG independently reviewed and interpreted by me, shows normal sinus rhythm, ec2 rate of 92, no acute ST segment elevations, intervals are nonactionable.. 11:30 ED course: Lab work is nonactionable. On reassessment patient without recurrence of ec2 seizure activity. Will discharge home. Return precautions given. Instructed to follow-up with neurology.. 10 10:21 Order name: Basic Metabolic Panel; Complete Time: 11:29 ec2 05/04 10:21 Order name: CBC with Diff; Complete Time: 11:29 ec2 05/04 10:21 Order name: LFT's; Complete Time: 11:29 ec2 05/04 10:21 Order name: CT Head Brain wo Cont; Complete Time: 10:42 ec2 05/04 10:21 Order name: Cardiac monitoring; Complete Time: 10:40 ec2 05/04 10:21 Order name: EKG - Nurse/Tech; Complete Time: 11:14 ec2 05/04 10:21 Order name: IV Saline Lock; Complete Time: 10:52 ec2 05/04 10:21 Order name: Labs collected and sent; Complete Time: 10:52 ec2 05/04 10:21 Order name: O2 Per Protocol; Complete Time: 10:40 ec2 05/04 10:21 Order name: O2 Sat Monitoring; Complete Time: 10:40 ec2 Administered Medications: 10:56 Drug: Ondansetron IVP 4 mg IVP once; over 2 minutes Route: IVP; Site: left antecubital; ko1 11:11 Follow up: Response: No adverse reaction ko1 10:59 Drug: Diazepam IVP 5 mg IVP once Route: IVP; Site: left antecubital; ko1 11:14 Follow up: Response: No adverse reaction; Anxiety decreased ko1 Disposition Summary: 05/04/24 11:30 Discharge Ordered Notes: Location: Home ec2 Condition: Stable ec2 Diagnosis - Other seizures ec2 Followup: ec2 - With: Marquis Al MD - When: - Reason: Recheck today's complaints Discharge Instructions: - Discharge Summary Sheet ec2 - Seizure, Adult ec2 Forms: - Medication Reconciliation Form ec2 - Antibiotic Education ec2 - Prescription Opioid Use ec2 - Patient Portal Instructions ec2 - Leadership Thank You Letter ec2 Signatures: Dispatcher [employer] Hilda Coffman RN RN ko1 Isaac Mcgrath MD MD ec2 Corrections: (The following items were deleted from the chart) 10:21 10:21 Head Brain Wo [id number] ordered. EDMS EDMS
[2024-05-04 12:23] VITALS: TEMP 97.8
[2024-05-04 12:24] VITALS: BP 126/78; O2SAT 99
--- NOTE | 2024-05-05 16:55 | EKG ---
Test Date: 2024-05-04 Test Time: 11:12:17 [employer] Attendant: LORRAINE MEASUREMENT RESULTS: Intervals: Rate: 92 MI: 124 QRSD: 88 QT: 348 QTc: 430 Alvin: P: 51 MI: 124 QRS: 74 T: 37 INTERPRETIVE STATEMENTS: Normal sinus rhythm Normal ECG No previous ECG available for comparison Electronically Signed On 05-05-24 16:50:46 CDT by Broderick Dejesus
== END 2024-05-04 11:58 | disposition home or self-care (01) ==
LOC: ER 10:20
DX: R56.9 Unspecified convulsions (principal)
CPT/HCPCS: 36415; 70450; 80048; 80076; 85025; 93005; J2405; J3360